=== PATIENT | female | born 1945 ===

== ENCOUNTER 2020-03-31 13:04 | Outpatient (REF) | payer SELFPAY ==
[2020-04-02 05:46] LABS: SARS-CoV-2 RNA Undetected (Undetected); SARS-CoV-2 Specimen Source Nasal
== END 2020-03-31 13:24 ==
LOC: NCHCN 13:04
PROVIDERS: Visit Provider Nurse Practitioner Family
DX: Z20.828 Contact with and (suspected) exposure to other viral communicable diseases (principal)
CPT/HCPCS: U0003